=== PATIENT | male | born 1975 | race Caucasian/White ===

== ENCOUNTER 2017-06-10 11:38 | Emergency (ER) | payer MEDICARE ==
[2017-06-10] MEDS ORDERED: Sodium Chloride 0.9% 1000 ML 1,000 ML IV STA (12:29)
--- NOTE | 2017-06-10 12:29 | ERPHSYRPT ---
- History of Present Illness Time Seen by Provider: 06/10/17 12:22 Historian: patient Exam Limitations: no limitations Patient Subjective Stated Complaint: PT REPORTS RIGHT SIDED CHEST PAIN BEGINNING JONATAN 3 DAYS AGO-REPORTS EPISODES OF TUNNEL VISION BUT DENIES LOC- DENIES N/V/D-DENIES RECENT ILLNESS-PT HAS BEEN OUT OF HOME MEDS FOR SEVERAL WEEKS Triage Nursing Assessment: PT PINK WARM ET [id number] CLEAR ET EQUAL BILATERALLY-RESP NONLABORED-CAP REFILL WNL-RADIAL PULSE REGULAR ET STRONG Physician History: The patient is a 41-year-old male complaining of right sided chest pain that is worse with movement and breathing for the last 2-3 days. He also complains of feeling lightheaded and almost passing out after he sits up from a lying position. He saw friend today who said his pulse was in the 130s. The patient has been out of his prescription medicines for a month. He states he takes medicine for high blood pressure, a stomach pill, anxiety. He says he doesn't have any money for his medicines. He rarely consumes alcohol. He does not smoke. Timing/Duration: day(s) (3) Activities at Onset: none Quality: sharpness Location: substernal Chest Pain Radiation: no radiation Severity of Pain-Max: moderate Severity of Pain-Current: moderate Modifying Factors: Improves With: breathing, movement Associated Symptoms: denies symptoms Prior Chest Pain/Cardiac Workup: no prior chest pain Nitro Today/Relief: no nitro taken today Aspirin Treatment Today: 325 mg x 1 Allergies/Adverse Reactions: No Known Drug Allergies Allergy (Verified 06/10/17 12:05) Home Medications: No Home Meds 1 jae HILL UD 06/10/17 [History] Hx Tetanus, Diphtheria Vaccination/Date Given: Yes Hx Influenza Vaccination/Date Given: No Hx Pneumococcal Vaccination/Date Given: No Immunizations Up to Date: Yes - Review of Systems Constitutional: No Fever, No Chills Eyes: No Symptoms Ears, Nose, & Throat: No Symptoms Respiratory: No Cough, No Dyspnea Cardiac: Chest Pain Abdominal/Gastrointestinal: No Abdominal Pain, No Nausea, No Vomiting, No Diarrhea Genitourinary Symptoms: No Dysuria Musculoskeletal: No Back Pain, No Neck Pain Skin: No Rash Neurological: Dizziness Psychological: No Symptoms Endocrine: No Symptoms Hematologic/Lymphatic: No Symptoms Immunological/Allergic: No Symptoms All Other Systems: Reviewed and Negative - Past Medical History Pertinent Past Medical History: Yes Cardiac History: Aneurysm, Hypertension Psycho-Social History: Anxiety, Depression - Past Surgical History Past Surgical History: Yes Musculoskeletal: Orthopedic Surgery Other Surgical History: TONSILECTOMY - Social History Smoking Status: Never smoker Exposure to second hand smoke: No Drug Use: none Patient Lives Alone: No - Nursing Vital Signs Nursing Vital Signs: Initial Vital Signs Temperature 98.0 F 06/10/17 12:02 Pulse Rate 100 H 06/10/17 12:02 Respiratory Rate 20 06/10/17 12:02 Blood Pressure 134/77 06/10/17 12:02 O2 Sat by Pulse Oximetry 94 L 06/10/17 12:02 Pain Scale Pain Intensity 6 - Physical Exam General Appearance: no apparent distress, alert Eye Exam: PERRL/EOMI, eyes nml inspection Ears, Nose, Throat Exam: normal ENT inspection, moist mucous membranes Neck Exam: normal inspection, non-tender, supple, full range of motion Respiratory Exam: normal breath sounds, chest tenderness (Palpation just to the right of the sternum elicits a painful response from the patient consistent with the chest pain he had been having.), lungs clear, No respiratory distress Cardiovascular Exam: tachycardia Gastrointestinal/Abdomen Exam: soft, No tenderness, No mass Rectal Exam: not done Back Exam: normal inspection, No CVA tenderness, No vertebral tenderness Extremity Exam: normal inspection, normal range of motion Neurologic Exam: alert, oriented x 3, cooperative, normal mood/affect, sensation nml, No motor deficits Skin Exam: normal color, warm, dry SpO2 Interpretation: normal SpO2: 94 Oxygen Delivery: Room Air - Course EKG Interpreted by Me: RATE, Sinus Tach, NORMAL AXIS, NORMAL INTERVALS, NORMAL QRS, NORMAL ST-T - Radiology Exams Chest X-ray Interpretation: Teleradiologist Report, Negative (nonacute per Dr Olivia.) Ordered Tests: Active Orders 24 hr Category Date Time Status EKG-ER Only STAT Care 06/10/17 12:29 Active IV Insertion STAT Care 06/10/17 12:29 Active CHEST 2 VIEWS (PA AND LAT) Stat Exams 06/10/17 12:29 Completed CBC W DIFF Stat Lab 06/10/17 12:25 Completed CMP Stat Lab 06/10/17 12:25 Completed Manual Differential NC Stat Lab 06/10/17 12:25 Completed TROPONIN Q3H Lab 06/10/17 12:30 Completed TROPONIN Q3H Lab 06/10/17 15:30 Ordered TROPONIN Q3H Lab 06/10/17 18:30 Ordered TROPONIN Q3H Lab 06/10/17 21:30 Ordered TROPONIN Q3H Lab 06/11/17 00:30 Ordered Medication Summary Discontinued Medications Generic Name Dose Route Start Last Admin Trade Name Best PRN Reason Stop Dose Admin Sodium Chloride 1,000 mls @ 999 mls/hr 06/10/17 12:29 06/10/17 12:51 Sodium Chloride 0.9% 1000 Ml IV 06/10/17 13:29 999 mls/hr .Q1H1M STA Administration Sodium Chloride Confirm 06/10/17 12:46 Sodium Chloride 0.9% 1000 Ml Administered 06/10/17 12:47 Dose 1,000 mls @ ud .ROUTE .STK-MED ONE Ketorolac Tromethamine 30 mg 06/10/17 13:57 06/10/17 14:02 Toradol 30 Mg Injection IV 06/10/17 13:58 30 mg STAT ONE Administration Ketorolac Tromethamine Confirm 06/10/17 13:59 Toradol 30 Mg Injection Administered 06/10/17 14:00 Dose 30 mg .ROUTE .STK-MED ONE Lab/Rad Data: Laboratory Result Diagrams 06/10/17 12:25 06/10/17 12:25 Laboratory Results 06/10/17 06/10/17 06/10/17 Range/Units 12:30 12:25 12:25 WBC 17.4 H (4.0-10.5) K/mm3 RBC 5.24 (4.1-5.6) M/mm3 Hgb 16.2 (12.5-18.0) gm/dl Hct 48.0 (42-50) % MCV 91.6 (78-100) fl MCH 30.9 (26-32) pg MCHC 33.8 (32-36) g/dl RDW 13.7 (11.5-14.0) % Plt Count 174 (150-450) K/mm3 MPV 11.1 H (6-9.5) fl Sodium 138 (136-145) mEq/L Potassium 3.5 (3.5-5.1) mEq/L Chloride 101 (98-107) mEq/L Carbon Dioxide 23.8 (21-32) mEq/L Anion Gap 16.3 H (5-15) MEQ/L BUN 12 (9-20) mg/dL Creatinine 1.29 (0.55-1.30) mg/dl Estimated GFR > 60 ML/MIN Glucose 148 H (70-110) MG/DL Calcium 9.0 (8.5-10.1) mg/dL Total Bilirubin 1.20 H (0.2-1.0) mg/dL AST 24 (15-37) U/L ALT 45 (12-78) U/L Alkaline Phosphatase 55 (46-116) U/L Troponin I < 0.017 (0.000-0.056) ng/ml Serum Total Protein 8.1 (6.4-8.2) gm/dL Albumin 3.7 (3.4-5.0) g/dL - Progress Progress: improved Air Movement: good Blood Culture(s) Obtained: No Antibiotics given: No Counseled pt/family regarding: lab results, diagnosis, need for follow-up, rad results - Departure Time of Disposition: 14:00 Departure Disposition: Home Clinical Impression: Musculoskeletal chest pain, Leukocytosis Condition: Stable Critical Care Time: No Referrals: DIANDRA SANTOS [Primary Care Provider] - Additional Instructions: You have musculoskeletal chest pain. The EKG and the blood work were negative for heart problems. You were given Toradol 30 mg by IV in the ER. Continue to take Tylenol and ibuprofen as needed. Follow-up with your family doctor. Restart your prescription medications.
[2017-06-10 12:41] LABS: Mean Cell Volume 91.6 fl (78-100); Mean Corpuscular Hemoglobin 30.9 pg (26-32); Mean Platelet Volume 11.1 fl (6-9.5); Platelet Count 174 K/mm3 (150-450); Red Blood Count 5.24 M/mm3 (4.1-5.6); Red Cell Distribution Width 13.7 % (11.5-14.0); White Blood Count 17.4 K/mm3 (4.0-10.5)
[2017-06-10] MEDS ORDERED: Sodium Chloride 0.9% 1000 ML 1,000 ML ONE (12:46)
--- NOTE | 2017-06-10 12:48 | XRAY ---
Indication: Chest pain. Comparison: None PA/lateral chest slightly underinflated and clear. Heart is not enlarged. Bony thorax intact. Impression: Nonacute underinflated chest.
[2017-06-10 13:07] VITALS: BP 115/78
[2017-06-10 13:10] LABS: ALBUMIN 3.7 g/dL (3.4-5.0); ALKALINE PHOSPHATASE 55 U/L (46-116); ANION GAP 16.3 MEQ/L (5-15); BLOOD UREA NITROGEN 12 mg/dL (9-20); CHLORIDE 101 mEq/L (98-107); Carbon Dioxide 23.8 mEq/L (21-32); Glucose 148 MG/DL (70-110); Potassium 3.5 mEq/L (3.5-5.1); SGOT/AST 24 U/L (15-37); SGPT/ALT 45 U/L (12-78); SODIUM 138 mEq/L (136-145); Total Protein 8.1 gm/dL (6.4-8.2)
[2017-06-10 13:57] VITALS: PULSE 94
[2017-06-10] MEDS ORDERED: TORAdol 30 mg Injection IV ONE (13:57)
[2017-06-10 13:59] VITALS: O2SAT 94
[2017-06-10] MEDS ORDERED: TORAdol 30 mg Injection ONE (13:59)
[2017-06-10 15:36] LABS: BAND 2 % (0.0-2.0); Platelet Estimate NORMAL (NORMAL); Total Cells Counted 100
== END 2017-06-10 14:07 | disposition home or self-care (01) ==
LOC: ED 11:38
DX: R07.89 Other chest pain (principal); D72.829 Elevated white blood cell count, unspecified; R42 Dizziness and giddiness; I10 Essential (primary) hypertension; F41.9 Anxiety disorder, unspecified
CPT/HCPCS: 36000; 36415; 71020; 80053; 84484; 85025; 93005; 93041; 96360; 96374; 99284; J1885

== ENCOUNTER 2021-03-30 16:32 | Emergency (ER) | payer MEDICARE ==
[2021-03-30 17:33] LABS: Absolute Neutrophil Ct (ANC) 6.41 (1.4-6.9); BASOPHIL % 0.3 % (0.0-0.4); Basophil (Absolute #) 0.04 (0-0.4); Eosinophil % 4.1 % (0.00-5.0); Eosinophil (Absolute #) 0.48 (0-0.5); Hematocrit 50.4 % (42-50); Hemoglobin 16.4 gm/dl (12.5-18.0); Lymphocyte (Absolute #) 3.54 (1.0-4.6); Lymphocytes % 30.1 % (24.0-44.0); Mean Cell Volume 92.6 fl (78-100); Mean Corpuscular Hemoglobin 30.1 pg (26-32); Mean Corpuscular Hgb Concent. 32.5 g/dl (32-36); Mean Platelet Volume 10.7 fl (7.5-11.0); Neutrophil % 54.5 % (36.0-66.0); Platelet Count 235 K/mm3 (150-450); Red Blood Count 5.44 M/mm3 (4.1-5.6); Red Cell Distribution Width 13.6 % (11.5-14.0); White Blood Count 11.8 K/mm3 (4.0-10.5)
[2021-03-30 17:41] LABS: ALBUMIN 4.7 g/dL (3.5-5.0); ALKALINE PHOSPHATASE 66 U/L (38-126); ANION GAP 15.4 MEQ/L (5-15); BLOOD UREA NITROGEN 17 mg/dL (9-20); CHLORIDE 98 mmol/L (98-107); Calcium 10.2 mg/dL (8.4-10.2); Carbon Dioxide 30 mmol/L (22-30); Creatinine 1 1.03 mg/dL (0.66-1.25); EST GLOMERULAR FILTRATION RATE > 60.0 ML/MIN; Glucose 141 mg/dL (74-106); Potassium 4.5 mmol/L (3.5-5.1); SGOT/AST 54 U/L (17-59); SGPT/ALT 75 U/L (0-50); SODIUM 139 mmol/L (137-145); Total Protein 8.2 g/dL (6.3-8.2)
--- NOTE | 2021-03-30 19:14 | ERPHSYRPT ---
- History of Present Illness Source: patient Exam Limitations: no limitations Patient Subjective Stated Complaint: Pt states that he feels horrible and his sugar is running high Triage Nursing Assessment: Pt was brought to the ER by his girlfriend, stefan wnl, states that his sugar was 330 when he tested earlier, blurred vision, dizziness, headache, left side of the head feels "weird", denies pain but has a headache, doesn't appear to be in any distress Physician History: 45 yo wm w hyperglycemia today/L frontal headache/blurry vision. Pain 8/10 and throbbing. He denies trauma/N/V/fever/stiff neck. Accu-check 135 upon arrival. Timing/Duration: today Severity: moderate Modifying Factors: Improves With: nothing Associated Symptoms: headaches, No nausea, No vomiting, No abdominal pain, No shortness of breath, No heartburn, No diaphoresis, No cough, No chills, No chest pain, No fever, No loss of appetite, No malaise, No rash, No syncope, No seizure, No weakness Allergies/Adverse Reactions: metformin Allergy (Verified 03/30/21 16:54) captopril [From Capoten] Adverse Reaction (Verified 03/30/21 16:54) Home Medications: Cholecalciferol (Vitamin D3) [Vitamin D] 50,000 unit PO 2XW 03/30/21 [History] Empagliflozin [Jardiance] 25 mg PO DAILY 03/30/21 [History] Ergocalciferol (Vitamin D2) [Vitamin D2] 1 cap PO 2XW 03/30/21 [History] Gabapentin 300 mg [Neurontin 300 mg] 300 mg PO TID 03/30/21 [History] Glipizide [Glipizide ER] 5 mg PO DAILY 03/30/21 [History] Hydrochlorothiazide 25 mg [hydroDIURIL 25 MG] 25 mg PO DAILY 03/30/21 [History] Losartan Potassium 50 mg [Cozaar 50 MG] 50 mg PO DAILY 03/30/21 [History] Oxycodone HCl/Acetaminophen [Oxycodone-Acetaminophen 5-325] 1 each PO Q6H 03/30/21 [History] Hx Tetanus, Diphtheria Vaccination/Date Given: Yes Hx Influenza Vaccination/Date Given: No Hx Pneumococcal Vaccination/Date Given: No Travel Risk - International Travel Have you traveled outside of the country in past 3 weeks: No - Coronavirus Screening Are you exhibiting any of the following symptoms?: No Close contact with a COVID-19 positive Pt in past 14-21 Days: No - Vaccine Status Have you recieved a Covid-19 vaccination: No - Review of Systems Constitutional: No Symptoms, Fatigue Eyes: No Symptoms Ears, Nose, & Throat: No Symptoms Respiratory: No Symptoms Cardiac: No Symptoms Abdominal/Gastrointestinal: No Symptoms Genitourinary Symptoms: No Symptoms Musculoskeletal: No Symptoms Skin: No Symptoms Neurological: No Symptoms, Headache Psychological: No Symptoms Endocrine: No Symptoms Hematologic/Lymphatic: No Symptoms Immunological/Allergic: No Symptoms - Past Medical History Pertinent Past Medical History: Yes Cardiac History: Hypertension Endocrine Medical History: Diabetes Type II Psycho-Social History: Anxiety - Past Surgical History Past Surgical History: Yes Gastrointestinal: Cholecystectomy Musculoskeletal: Orthopedic Surgery Other Surgical History: scres and pins in left arm and left elbow, multiple surgeries to the left leg, back surgery due to an accident - Social History Smoking Status: Never smoker Exposure to second hand smoke: No Drug Use: none Patient Lives Alone: No Significant Family History: no pertinent family hx - Nursing Vital Signs Nursing Vital Signs: Initial Vital Signs Temperature 98.3 F 03/30/21 16:43 Pulse Rate 81 03/30/21 16:43 Blood Pressure 127/98 03/30/21 16:43 O2 Sat by Pulse Oximetry 98 03/30/21 16:43 Pain Scale Pain Intensity 0 - Physical Exam General Appearance: no apparent distress Eye Exam: PERRL/EOMI, eyes nml inspection Ears, Nose, Throat Exam: normal ENT inspection, TMs normal, pharynx normal, moist mucous membranes Neck Exam: normal inspection, non-tender, supple, full range of motion, No meningismus, No mass, No Brudzinski, No Kernig's, No carotid bruit Respiratory Exam: normal breath sounds, lungs clear, airway intact, No respiratory distress Cardiovascular Exam: regular rate/rhythm, normal heart sounds, normal peripheral pulses, No murmur Gastrointestinal/Abdomen Exam: soft, normal bowel sounds, No tenderness Back Exam: normal inspection, normal range of motion, No CVA tenderness, No vertebral tenderness Extremity Exam: normal inspection, normal range of motion Neurologic Exam: alert, oriented x 3, cooperative, skiver box toe II-XII nml as tested, normal mood/affect, nml cerebellar function, nml station & gait, sensation nml, EOM palsy, No motor deficits, No sensory deficit Skin Exam: normal color, warm, dry Lymphatic Exam: adenopathy SpO2 Interpretation: normal SpO2: 95 O2 Delivery: Room Air - CT Exams Head CT Interpretation: Tele-radiologist Report (Ct head neg) Ordered Tests: Active Orders 24 hr Category Date Time Status EKG-ER Only STAT Care 03/30/21 17:18 Completed IV Insertion STAT Care 03/30/21 16:55 Completed POCT Glucose Check STAT Care 03/30/21 16:56 Completed HEAD WITHOUT CONTRAST [CT] Stat Exams 03/30/21 17:19 Taken CBC W DIFF Stat Lab 03/30/21 17:10 Completed CMP Stat Lab 03/30/21 17:10 Completed POCT GLUCOSE Stat Lab 03/30/21 16:53 Completed TROPONIN Q3H Lab 03/30/21 17:10 Completed Lab/Rad Data: Laboratory Result Diagrams 03/30/21 17:10 03/30/21 17:10 Laboratory Results 03/30/21 03/30/21 03/30/21 Range/Units 17:10 17:10 17:10 WBC 11.8 H (4.0-10.5) K/mm3 RBC 5.44 (4.1-5.6) M/mm3 Hgb 16.4 (12.5-18.0) gm/dl Hct 50.4 H (42-50) % MCV 92.6 (78-100) fl MCH 30.1 (26-32) pg MCHC 32.5 (32-36) g/dl RDW 13.6 (11.5-14.0) % Plt Count 235 (150-450) K/mm3 MPV 10.7 (7.5-11.0) fl Gran % 54.5 (36.0-66.0) % Eos # (Auto) 0.48 (0-0.5) Absolute Lymphs (auto) 3.54 (1.0-4.6) Absolute Monos (auto) 1.30 (0.0-1.3) Lymphocytes % 30.1 (24.0-44.0) % Monocytes % 11.0 (0.0-12.0) % Eosinophils % 4.1 (0.00-5.0) % Basophils % 0.3 (0.0-0.4) % Absolute Granulocytes 6.41 (1.4-6.9) Basophils # 0.04 (0-0.4) Sodium 139 (137-145) mmol/L Potassium 4.5 (3.5-5.1) mmol/L Chloride 98 (98-107) mmol/L Carbon Dioxide 30 (22-30) mmol/L Anion Gap 15.4 H (5-15) MEQ/L BUN 17 (9-20) mg/dL Creatinine 1.03 (0.66-1.25) mg/dL Estimated GFR > 60.0 ML/MIN Glucose 141 H (74-106) mg/dL POC Glucometer (74 to 106) mg/dL Calcium 10.2 (8.4-10.2) mg/dL Total Bilirubin 0.70 (0.2-1.3) mg/dL AST 54 (17-59) U/L ALT 75 H (0-50) U/L Alkaline Phosphatase 66 (38-126) U/L Troponin I < 0.012 (0.000-0.034) ng/mL Serum Total Protein 8.2 (6.3-8.2) g/dL Albumin 4.7 (3.5-5.0) g/dL 03/30/21 Range/Units 16:53 WBC (4.0-10.5) K/mm3 RBC (4.1-5.6) M/mm3 Hgb (12.5-18.0) gm/dl Hct (42-50) % MCV (78-100) fl MCH (26-32) pg MCHC (32-36) g/dl RDW (11.5-14.0) % Plt Count (150-450) K/mm3 MPV (7.5-11.0) fl Gran % (36.0-66.0) % Eos # (Auto) (0-0.5) Absolute Lymphs (auto) (1.0-4.6) Absolute Monos (auto) (0.0-1.3) Lymphocytes % (24.0-44.0) % Monocytes % (0.0-12.0) % Eosinophils % (0.00-5.0) % Basophils % (0.0-0.4) % Absolute Granulocytes (1.4-6.9) Basophils # (0-0.4) Sodium (137-145) mmol/L Potassium (3.5-5.1) mmol/L Chloride (98-107) mmol/L Carbon Dioxide (22-30) mmol/L Anion Gap (5-15) MEQ/L BUN (9-20) mg/dL Creatinine (0.66-1.25) mg/dL Estimated GFR ML/MIN Glucose (74-106) mg/dL POC Glucometer 135 H (74 to 106) mg/dL Calcium (8.4-10.2) mg/dL Total Bilirubin (0.2-1.3) mg/dL AST (17-59) U/L ALT (0-50) U/L Alkaline Phosphatase (38-126) U/L Troponin I (0.000-0.034) ng/mL Serum Total Protein (6.3-8.2) g/dL Albumin (3.5-5.0) g/dL - Progress Progress Note: 03/30/21 19:20 Pt's SARMIENTO improved wo any treatment. BP slightly low for pt, but he has no evidence of sepsis. Possibly due to BP/pain meds. Will DC pt to f/u w Dr. Sebastian. Counseled pt/family regarding: lab results, need for follow-up, rad results - Departure Departure Disposition: Home Clinical Impression: Hyperglycemia, Headache Condition: Stable Critical Care Time: No Referrals: JARAD SEBASTIAN [Primary Care Provider] - Instructions: Hyperglycemia, Adult (DC), Headache, Adult (DC) Additional Instructions: Follow up with Dr. Sebastian next week Return to ER for worsening headache/temperature greater than 100.5
[2021-03-30 19:23] VITALS: BP 102/72; PULSE 60
[2021-03-30 19:24] VITALS: O2SAT 95
--- NOTE | 2021-03-30 21:42 | XRAY ---
Indication: Blurred vision and headache. Hyperglycemia. Multiple contiguous axial images obtained through the head without contrast. Comparison: None Normal appearing brain parenchyma, ventricles, and bony calvarium. Visualized paranasal sinuses and mastoid air cells are clear. Impression: Normal CT head without contrast exam. Comment: Preliminary interpretation was made by [facility]. No critical discrepancy.
== END 2021-03-30 19:27 | disposition home or self-care (01) ==
LOC: ED 16:32
DX: E11.65 Type 2 diabetes mellitus with hyperglycemia (principal); R51.9 Headache, unspecified
CPT/HCPCS: 36000; 36415; 70450; 80053; 82947; 84484; 85025; 93005; 99284